=== PATIENT | male | born 1980 | race African-American/Black ===

== ENCOUNTER 2021-03-03 08:59 | Emergency (ER) | payer MEDICAID, OTHER ==
[~2021-03-03] VITALS: Ht 188 cm; Wt 108.9 kg
[2021-03-03 09:24] VITALS: BP 146/99
== END 2021-03-03 10:17 | disposition home or self-care (01) ==
LOC: ER 08:59
DX: S33.5XXA Sprain of ligaments of lumbar spine, initial encounter (principal); M54.16 Radiculopathy, lumbar region; R07.81 Pleurodynia; V49.49XA Driver injured in collision with other motor vehicles in traffic accident, initial encounter; Y93.89 Activity, other specified; Y92.410 Unspecified street and highway as the place of occurrence of the external cause; Y99.8 Other external cause status
CPT/HCPCS: 71101; 72100